=== PATIENT | female | born 1960 | race Caucasian/White ===

== ENCOUNTER 2016-10-20 08:35 | Emergency (ER) | payer BC ==
[~2016-10-20] VITALS: Ht 165.1 cm; Wt 101.8 kg
[~2016-10-20 08:35] MED LIST: ALEVE220 M2 PO; KLONOPIN1 MG PO; SYNTHROID150 MCG PO; ZYBAN 150 MG T150 MG PO
[2016-10-20 09:14] LABS: HEMATOCRIT 37.7 % (36.0-46.0); MCHC 33.2 G/DL (30.0-36.0); MCV 87.5 FL (83-99); MEAN PLAT.VOLUME 9.1 uM^3 (9.5-12.4); PLATELET COUNT 246 K/uL (156-360); RBC DIS.WIDTH-CV 13.2 % (11.8-14.6); RBC DIS.WIDTH-SD 42.5 % (39-53); RED BLOOD COUNT 4.31 M/uL (3.80-5.20); WHITE BLOOD COUNT 8.5 K/uL (4.1-10.2)
[2016-10-20 09:26] LABS: CHLORIDE 105 mEq/L (99-109); POTASSIUM 3.4 mEq/L (3.7-5.4); SODIUM 143 mEq/L (136-147)
[2016-10-20 09:28] LABS: GLUCOSE 106 mg/dL (70-99)
[2016-10-20 09:30] LABS: ANION GAP 11 MEQ/L (2-14)
[2016-10-20 09:32] LABS: GFR ESTIMATE (CALCULATED) > 59 mL/min/
[2016-10-20 09:33] LABS: UREA NITROGEN (BUN) 12 mg/dL (9-23)
[2016-10-20 09:34] LABS: TROP-I INTERPRETATION NEGATIVE; TROPONIN-I 0.01 ng/mL (0.0-0.30)
[2016-10-20 09:55] LABS: TOTAL BILIRUBIN 0.8 mg/dL (0.0-1.0)
[2016-10-20 09:56] LABS: ALKALINE PHOSPHATASE 71 IU/L (3-129)
[2016-10-20 09:59] LABS: DIRECT BILIRUBIN 0.3 mg/dL (0.0-0.3)
[2016-10-20 10:00] LABS: LIPASE 18 U/L (1.0-51.0)
[2016-10-20 13:06] LABS: TROP-I INTERPRETATION NEGATIVE; TROPONIN-I 0.01 ng/mL (0.0-0.30)
[2016-10-20] MEDS ORDERED: TYLENOL WITH C1 EACH PO (14:14)
[2016-10-20 14:17] VITALS: BP 114/48
== END 2016-10-20 14:19 | disposition home or self-care (01) ==
LOC: EME 08:35
PROVIDERS: Emergency Medicine
DX: R07.89 Other chest pain (principal); J45.909 Unspecified asthma, uncomplicated; Z87.891 Personal history of nicotine dependence
CPT/HCPCS: 71020; 80048; 80076; 83690; 84484; 85027; 93005; 99281; 99285; J1885; J7030